=== PATIENT | female | born 1990 | race Caucasian/White ===

== ENCOUNTER 2016-08-06 23:50 | Emergency (ER) | payer OTHER ==
--- NOTE | ~2016-08-06 | CR172 ---
[facility]. [facility] A Service of [facility] & [facility] RADIOLOGY TEXT RESULTS PATIENT: PILAR FELDMAN LOCATION: SED : [birth year] UNIT #: [id number] AGE: [address]: Rosalind Sales APRN SEX: F ORDER DR: [id number] [place] [id number] E MR#: [id number] Acc #: [id number] NAME: PILAR FELDMAN. : 1990 SEX: F STUDY DATE/TIME: 08/07/2016 0:17 UNIT: SED ROOM: STUDY DESCRIPTION: CR Knee 3 Views Lt Attending Physician: Rosalind Sales A.P.R.N. Ordering Physician: Rosalind Sales A.P.R.N. Primary Care Physician: Saba Krishna A.P.R.N. MEDICAL IMAGING REPORT This report is preliminary unless electronic signature is present. EXAM Left knee series INDICATION Left knee pain and after a fall tonight. PROCEDURE 3 views of the left knee. COMPARISON None. FINDINGS No acute fracture, dislocation or joint effusion. IMPRESSION No acute findings. Dictated by... Tono Kaiser M.D. THIS IS AN ELECTRONICALLY VERIFIED REPORT Tono Kaiser M.D. at 08/10/2016 7:29 AM JARRED/luigi TD: 08/07/2016 04:25 JOB #: [id number] MEDICAL IMAGING REPORT Page 1 of 1
[~2016-08-06 23:50] MED LIST: ACETAMINOPHEN PO; ACID REFLEX; ALBUTEROL17 GM; AMOXICILLIN875 MG PO; ANTI-ANXIETY MED; BACTRIM DS TABL1 TA1 PO; BACTRIM DS TABL1 TAB PO; BENZONATATE PO; CIPRO PO; CLARITIN10 MG PO; ELIMITE60 GM TOP; FLEXERIL; FLEXERIL10 MG PO; HEADACHE MEDICINE; HYDROCODON-ACE1 EAC7 PO; IRON325 ( 651; KEFLEX500 MG PO; MOTRIN600 M1 PO; NAPROSYN375 MG PO; NAPROXEN PO; NO MEDICATIONS; OMEPRAZOLE40 MG PO; PEN-VEE K PO; PHENERGAN PO; PHENERGAN25 M1 PO; PRENATAL VITAMI1 TA3 PO; PRILOSEC; PRILOSEC PO; PRILOSEC20 M1 PO; PYRIDIUM PO; SKELAXIN PO; TESSALON200 MG PO; TYLENOL #3 PO; VOLTAREN50 MG PO; VOLTAREN75 MG PO; ZOFRAN ODT4 MG PO; [UNRECOGNIZED DRUG - REMARK]
== END 2016-08-07 01:06 | disposition home or self-care (01) ==
LOC: SED 23:50
DX: S83.92XA Sprain of unspecified site of left knee, initial encounter (principal); F17.210 Nicotine dependence, cigarettes, uncomplicated; W18.30XA Fall on same level, unspecified, initial encounter; Y92.098 Other place in other non-institutional residence as the place of occurrence of the external cause
CPT/HCPCS: 29505; 73562; 99283

== ENCOUNTER 2016-08-12 10:06 | Emergency (ER) | payer OTHER | END 2016-08-12 10:49 | disposition home or self-care (01) | LOC: SED 10:06 | DX: S83.92XA Sprain of unspecified site of left knee, initial encounter (principal); F41.9 Anxiety disorder, unspecified; M41.9 Scoliosis, unspecified; F17.210 Nicotine dependence, cigarettes, uncomplicated; X58.XXXA Exposure to other specified factors, initial encounter; Y92.009 Unspecified place in unspecified non-institutional (private) residence as the place of occurrence of the external cause | CPT/HCPCS: 99283 ==

== ENCOUNTER 2016-08-24 09:28 | Emergency (ER) | payer OTHER ==
[2016-08-24 10:06] LABS: URINE SOURCE CLEAN CATCH
[2016-08-24 10:10] LABS: URINE APPEARANCE CLEAR; URINE BILIRUBIN NEG (NEG); URINE BLOOD NEG (NEG); URINE COLOR ORANGE; URINE GLUCOSE NEG (NORM); URINE KETONE NEG (NEG); URINE LEUKOCYTE ESTERASE NEG (NEG); URINE NITRATE NEG (NEG); URINE PH 7.5 (5-8); URINE PROTEIN NEG (NEG); URINE UROBILINOGEN 0.2 MG/DL (NORM)
[2016-08-24 10:11] LABS: MICRO INDICATED? NO
== END 2016-08-24 10:56 | disposition home or self-care (01) ==
LOC: SED 09:28
PROVIDERS: Emergency Medicine
DX: S39.012A Strain of muscle, fascia and tendon of lower back, initial encounter (principal); F41.9 Anxiety disorder, unspecified; F32.9 Major depressive disorder, single episode, unspecified; K21.9 Gastro-esophageal reflux disease without esophagitis; F17.200 Nicotine dependence, unspecified, uncomplicated; Z91.013 Allergy to seafood; X50.9XXA Other and unspecified overexertion or strenuous movements or postures, initial encounter; Y92.9 Unspecified place or not applicable
CPT/HCPCS: 81003; 84703; 99283

== ENCOUNTER 2016-10-04 01:02 | Emergency (ER) | payer SELFPAY ==
[2016-10-04] MEDS ORDERED: [UNRECOGNIZED DRUG - OTHER] (01:21)
== END 2016-10-04 02:23 | disposition home or self-care (01) ==
LOC: SED 01:02
DX: J20.9 Acute bronchitis, unspecified (principal); K21.9 Gastro-esophageal reflux disease without esophagitis; F32.9 Major depressive disorder, single episode, unspecified; F17.200 Nicotine dependence, unspecified, uncomplicated; Z91.013 Allergy to seafood
CPT/HCPCS: 94640; 99283